=== PATIENT | male | born 1985 | race Caucasian/White ===

== ENCOUNTER 2016-09-29 09:05 | Emergency (ER) | payer OTHER ==
[~2016-09-29 09:05] MED LIST: ALBUTEROL17 G1 PO; ALBUTEROL17 GM; ALBUTEROL17 GM INH; AMBIEN10 MG PO; BP MED; DOXYCYCLINE HY100 M1 PO; NAPROSYN500 MG PO; NO MEDICATIONS; PEN-VEE K PO; PHENERGAN DM1 ML PO; PHENERGAN W/CO120 ML PO; PREDNISONE PO; PROVENTIL2 MG INH; PULMICORT0.25 MG/2; VIBRAMYCIN100 M1 PO; ZITHROMAX PO; ZOVIRAX
[2016-09-29] MEDS ORDERED: NO MEDICATIONS (09:13)
== END 2016-09-29 09:46 | disposition home or self-care (01) ==
LOC: SED 09:05
DX: K02.9 Dental caries, unspecified (principal); I10 Essential (primary) hypertension; J44.9 Chronic obstructive pulmonary disease, unspecified; F17.210 Nicotine dependence, cigarettes, uncomplicated
CPT/HCPCS: 99282